=== PATIENT | male | born 1995 | race Caucasian/White ===

== ENCOUNTER 2021-06-23 15:02 | Emergency (ER) | payer MEDICAID ==
[~2021-06-23] VITALS: Ht 182.9 cm; Wt 81.6 kg
[2021-06-23 15:12] VITALS: BP_SYST 136
--- NOTE | 2021-06-23 15:18 | NUR ---
Patient triaged and placed in waiting room. VSS and patient appears in no acute distress at this time. Accompanied by SELF, awaiting available bed, and MD notified of need for MSE.
--- NOTE | 2021-06-23 15:35 | NUR ---
Patient to ER bed 8 to gown for evaluation. Side rails up. Report given to Jaime VILLAFANA.
--- NOTE | 2021-06-23 15:38 | NUR ---
RECEIVED AND IN ROOM, MACIEJ TO ASSUME CARE, CALM, ALERT, NO DISTRESS, COMMUNICATES CLEARLY
--- NOTE | 2021-06-23 15:50 | NUR ---
SENT BY [facility] FOR POSSIBEL W/U RELATED TO LT FACIAL NUMBNESS. LT SIDED TIGHTNESS
--- NOTE | 2021-06-23 16:04 | NUR ---
DR COREA IN TO ASSESS.
[2021-06-23 16:32] LABS: BASOPHILS % (AUTO) 0.3 % (0.0-2.0); EOSINOPHILS # (AUTO) 0.1 K/uL (0.0-0.4); HEMATOCRIT 44.2 % (36-54); HEMOGLOBIN 14.9 g/dL (14.0-18.0); LYMPHOCYTES # (AUTO) 2.1 K/uL (1.0-5.5); LYMPHOCYTES % (AUTO) 27.3 % (20.5-51.5); MEAN CORPUSCULAR HEMOGLOBIN 32 pg (27-31); MEAN CORPUSCULAR HGB CONC 34 % (32-36); MEAN CORPUSCULAR VOLUME 93 fL (79.0-98.0); MONOCYTES # (AUTO) 0.6 K/uL (0.0-1.0); MONOCYTES % (AUTO) 8.1 % (1.7-9.3); NEUTROPHILS # (AUTO) 4.7 K/uL (1.8-7.7); NEUTROPHILS % (AUTO) 62.3 % (40.0-70.0); PLATELET COUNT (AUTO) 208 K/uL (130-430); RED BLOOD CELL COUNT(AUTO) 4.75 MIL/uL (4.2-6.2); RED CELL DISTRIBUTION WIDTH 12.7 % (9.0-15.0); WHITE BLOOD COUNT (AUTO) 7.5 K/uL (4.8-10.8)
[2021-06-23 16:39] LABS: CALCIUM 8.7 mg/dL (8.4-11.0); CREATININE 1.19 mg/dL (0.55-1.30); POTASSIUM 4.2 mmol/L (3.5-5.1)
--- NOTE | 2021-06-23 16:40 | NUR ---
EKG, LABS, CXR AND CT HEAD COMPLETED. TOLERATED WELL
[2021-06-23 16:44] LABS: TOTAL BILIRUBIN 0.4 mg/dL (0.0-1.0)
[2021-06-23 16:45] LABS: INR 0.9 (0.80-1.20); PROTHROMBIN TIME 9.9 SECS (9.5-12.5)
--- NOTE | 2021-06-23 17:27 | NUR ---
DR COREA AT BEDSIDE. RESP UNLABORED, SKIN WARM AND DRY
[2021-06-23] MEDS ORDERED: ASPI-862 PO (17:28)
[2021-06-23] MEDS ORDERED: ASPIRIN 325 MG TABLET PO ONE (17:30)
[2021-06-23 17:37] VITALS: BP_SYST 128
--- NOTE | 2021-06-23 17:50 | NUR ---
Patient given written and verbal discharge instructions and verbalizes understanding. ER MD discussed with patient the results and treatment provided. Patient in stable condition. ID arm band removed. Rx of ASA given. Patient educated on pain management and to follow up with PMD. Pain Scale 0/10 Opportunity for questions provided and answered. Medication side effect fact sheet provided.
== END 2021-06-23 17:37 | disposition home or self-care (01) ==
LOC: SED 15:02
DX: I31.9 Disease of pericardium, unspecified (principal)
CPT/HCPCS: 36415; 70450-TC; 71045; 76376; 80053; 84484; 85025; 85610-TC; 85730-TC; 93005; 99285

== ENCOUNTER 2021-06-25 14:01 | Emergency (ER) | payer MEDICAID ==
[~2021-06-25] VITALS: Ht 182.9 cm; Wt 83.0 kg
[~2021-06-25 14:01] MED LIST: ASPI-862 PO
[2021-06-25 14:27] VITALS: BP_SYST 140
--- NOTE | 2021-06-25 14:27 | NUR ---
Patient to ER bed 7 to gown for evaluation. Side rails up.
--- NOTE | 2021-06-25 14:30 | NUR ---
pt arrives from home for a f/u. Pt was seen by Dr. Carey and was dx w/ endocarditis. Pt states that he feels better however, continues to experience some chest discomfort
--- NOTE | 2021-06-25 14:31 | NUR ---
ER at bedside examining patient.
[2021-06-25 15:02] LABS: BASOPHILS % (AUTO) 0.3 % (0.0-2.0); EOSINOPHILS # (AUTO) 0.2 K/uL (0.0-0.4); EOSINOPHILS % (AUTO) 1.8 % (0.0-4.0); HEMATOCRIT 43.6 % (36-54); HEMOGLOBIN 15.1 g/dL (14.0-18.0); LYMPHOCYTES # (AUTO) 1.7 K/uL (1.0-5.5); LYMPHOCYTES % (AUTO) 16.7 % (20.5-51.5); MEAN CORPUSCULAR HEMOGLOBIN 32 pg (27-31); MEAN CORPUSCULAR HGB CONC 35 % (32-36); MEAN CORPUSCULAR VOLUME 93 fL (79.0-98.0); MONOCYTES # (AUTO) 0.8 K/uL (0.0-1.0); MONOCYTES % (AUTO) 7.3 % (1.7-9.3); NEUTROPHILS # (AUTO) 7.7 K/uL (1.8-7.7); NEUTROPHILS % (AUTO) 73.9 % (40.0-70.0); PLATELET COUNT (AUTO) 200 K/uL (130-430); RED CELL DISTRIBUTION WIDTH 12.6 % (9.0-15.0); WHITE BLOOD COUNT (AUTO) 10.4 K/uL (4.8-10.8)
--- NOTE | 2021-06-25 16:01 | NUR ---
DR COREA IN TO SPEAK WITH PT.
[2021-06-25 16:03] LABS: CREATININE 1.2 mg/dL (0.55-1.30); POTASSIUM 4.8 mmol/L (3.5-5.1)
[2021-06-25 16:10] LABS: ALBUMIN 3.8 g/dL (3.4-4.8); TOTAL BILIRUBIN 0.6 mg/dL (0.0-1.0)
--- NOTE | 2021-06-25 16:20 | NUR ---
Patient given written and verbal discharge instructions and verbalizes understanding. ER MD discussed with patient the results and treatment provided. Patient in stable condition. ID arm band removed. Rx of NONE given. Patient educated on pain management and to follow up with PMD. Pain Scale 0/10. Opportunity for questions provided and answered. Medication side effect fact sheet provided.
== END 2021-06-25 16:20 | disposition home or self-care (01) ==
LOC: SED 14:01
DX: I31.9 Disease of pericardium, unspecified (principal); I49.9 Cardiac arrhythmia, unspecified
CPT/HCPCS: 36415; 71045; 80053; 84484; 85025; 93005; 99285